=== PATIENT | male | born 1950 | race Caucasian/White ===

== ENCOUNTER 2018-03-11 08:27 | Outpatient (CLI) | payer OTHER ==
[2018-03-11 10:34] LABS: THYROID STIMULATING HORMONE 27.31 uIU/mL (0.34-5.60)
[2018-03-11 10:36] LABS: FREE T4 (FREE THYROXINE) 0.68 ng/dL (0.58-1.64)
== END 2018-03-11 08:28 | disposition home or self-care (01) ==
LOC: LAB 08:27
PROVIDERS: ATTEND Internal Medicine Endocrinology, Diabetes & Metabolism
DX: R94.6 Abnormal results of thyroid function studies (principal)
CPT/HCPCS: 36415; 84439; 84443

== ENCOUNTER 2018-05-12 08:50 | Outpatient (CLI) | payer MEDICARE ==
[2018-05-12 10:27] LABS: THYROID STIMULATING HORMONE 38.74 uIU/mL (0.34-5.60)
[2018-05-12 10:29] LABS: FREE T4 (FREE THYROXINE) 0.73 ng/dL (0.58-1.64)
== END 2018-05-12 08:51 | disposition home or self-care (01) ==
LOC: LAB 08:50
PROVIDERS: ATTEND Internal Medicine Endocrinology, Diabetes & Metabolism
DX: R94.6 Abnormal results of thyroid function studies (principal)
CPT/HCPCS: 36415; 84439; 84443

== ENCOUNTER 2018-07-20 10:56 | Outpatient (CLI) | payer MEDICARE ==
[2018-07-20 14:55] LABS: FREE T4 (FREE THYROXINE) 0.47 ng/dL (0.58-1.64)
[2018-07-20 15:30] LABS: THYROID STIMULATING HORMONE 79.51 uIU/mL (0.34-5.60)
== END 2018-07-20 10:57 | disposition home or self-care (01) ==
LOC: LAB 10:56
PROVIDERS: ATTEND Internal Medicine Endocrinology, Diabetes & Metabolism
DX: R94.6 Abnormal results of thyroid function studies (principal)
CPT/HCPCS: 36415; 84439; 84443

== ENCOUNTER 2018-10-12 09:32 | Outpatient (CLI) | payer MEDICARE ==
[2018-10-12 10:15] LABS: FREE T4 (FREE THYROXINE) 0.75 ng/dL (0.58-1.64)
[2018-10-12 12:10] LABS: THYROID STIMULATING HORMONE 83.98 uIU/mL (0.34-5.60)
== END 2018-10-12 09:33 | disposition home or self-care (01) ==
LOC: LAB 09:32
PROVIDERS: ATTEND Internal Medicine Endocrinology, Diabetes & Metabolism
DX: E06.9 Thyroiditis, unspecified (principal); R79.89 Other specified abnormal findings of blood chemistry
CPT/HCPCS: 36415; 84439; 84443

== ENCOUNTER 2018-12-15 08:45 | Outpatient (CLI) | payer MEDICARE ==
[2018-12-15 10:30] LABS: THYROID STIMULATING HORMONE 18.64 uIU/mL (0.34-5.60)
[2018-12-15 10:32] LABS: FREE T4 (FREE THYROXINE) 1.15 ng/dL (0.58-1.64)
== END 2018-12-15 08:46 | disposition home or self-care (01) ==
LOC: LAB 08:45
PROVIDERS: ATTEND Internal Medicine Endocrinology, Diabetes & Metabolism
DX: E06.9 Thyroiditis, unspecified (principal)
CPT/HCPCS: 36415; 84439; 84443

== ENCOUNTER 2019-02-18 08:34 | Outpatient (CLI) | payer MEDICARE ==
[2019-02-18 10:37] LABS: THYROID STIMULATING HORMONE 20.73 uIU/mL (0.34-5.60)
[2019-02-18 10:39] LABS: FREE T4 (FREE THYROXINE) 0.9 ng/dL (0.58-1.64)
== END 2019-02-18 08:35 | disposition home or self-care (01) ==
LOC: LAB 08:34
PROVIDERS: ATTEND Internal Medicine Endocrinology, Diabetes & Metabolism
DX: E05.90 Thyrotoxicosis, unspecified without thyrotoxic crisis or storm (principal)
CPT/HCPCS: 36415; 84439; 84443

== ENCOUNTER 2019-04-22 09:09 | Outpatient (CLI) | payer MEDICARE ==
[2019-04-22 10:02] LABS: THYROID STIMULATING HORMONE 4.27 uIU/mL (0.34-5.60)
[2019-04-22 10:06] LABS: FREE T4 (FREE THYROXINE) 1.2 ng/dL (0.58-1.64)
== END 2019-04-22 09:10 | disposition home or self-care (01) ==
LOC: LAB 09:09
PROVIDERS: ATTEND Internal Medicine Endocrinology, Diabetes & Metabolism
DX: E03.9 Hypothyroidism, unspecified (principal)
CPT/HCPCS: 36415; 84439; 84443

== ENCOUNTER 2019-06-22 08:21 | Outpatient (CLI) | payer MEDICARE | END 2019-06-22 08:22 | disposition home or self-care (01) | LOC: LAB 08:21 | PROVIDERS: ATTEND Family Medicine | DX: R97.20 Elevated prostate specific antigen [PSA] (principal) | CPT/HCPCS: 36415; 84153 ==

== ENCOUNTER 2019-07-28 08:19 | Outpatient (CLI) | payer MEDICARE ==
[2019-07-28 10:03] LABS: THYROID STIMULATING HORMONE < 0.08 uIU/mL (0.34-5.60)
[2019-07-28 10:05] LABS: FREE T4 (FREE THYROXINE) 1.56 ng/dL (0.58-1.64)
== END 2019-07-28 08:20 | disposition home or self-care (01) ==
LOC: LAB 08:19
PROVIDERS: ATTEND Internal Medicine Endocrinology, Diabetes & Metabolism
DX: E05.90 Thyrotoxicosis, unspecified without thyrotoxic crisis or storm (principal)
CPT/HCPCS: 36415; 84439; 84443

== ENCOUNTER 2019-08-20 08:19 | Outpatient (CLI) | payer MEDICARE ==
[2019-08-20 09:03] LABS: ALBUMIN 3.9 g/dL (3.2-5.5); ALBUMIN/GLOBULIN RATIO 1.3 (1.0-2.2); ALKALINE PHOSPHATASE 92 IU/L (42-121); ALT ALANINE AMINOTRANSFERASE 12 IU/L (10-60); AST ASPARTATE AMINOTRANSFERASE 17 IU/L (10-42); BUN - BLOOD UREA NITROGEN 17 mg/dL (6-20); CALCIUM 9.4 mg/dL (8.5-10.3); CARBON DIOXIDE - CO2 27 mmol/L (21-32); CHLORIDE 104 mmol/L (101-111); CHOL/HDL RATIO 3.4 (<5.0); CHOLESTEROL 143 mg/dL; CREATININE 0.9 mg/dL (0.6-1.2); GFR - MDRD 83 (>89); GLUCOSE 100 mg/dL (70-100); HDL CHOLESTEROL 42 mg/dL; LDL CHOLESTEROL,CALCULATED 91 mg/dL; LDL/HDL RATIO 2.2 (<3.6); SODIUM 139 mmol/L (135-145); TOTAL PROTEIN 6.9 g/dL (6.7-8.2); VLDL CHOLESTEROL 10 mg/dL
== END 2019-08-20 08:20 | disposition home or self-care (01) ==
LOC: LAB 08:19
PROVIDERS: ATTEND Internal Medicine Clinical Cardiac Electrophysiology
DX: I48.19 Other persistent atrial fibrillation (principal); I42.0 Dilated cardiomyopathy; E05.90 Thyrotoxicosis, unspecified without thyrotoxic crisis or storm
CPT/HCPCS: 36415; 80053; 80061; 83721

== ENCOUNTER 2019-10-30 11:07 | Outpatient (CLI) | payer MEDICARE ==
[2019-10-30 11:54] LABS: THYROID STIMULATING HORMONE < 0.08 uIU/mL (0.34-5.60)
[2019-10-30 11:58] LABS: FREE T4 (FREE THYROXINE) 1.16 ng/dL (0.58-1.64)
== END 2019-10-30 11:08 | disposition home or self-care (01) ==
LOC: LAB 11:07
PROVIDERS: ATTEND Internal Medicine Endocrinology, Diabetes & Metabolism
DX: E05.90 Thyrotoxicosis, unspecified without thyrotoxic crisis or storm (principal)
CPT/HCPCS: 36415; 84439; 84443

== ENCOUNTER 2020-01-08 08:38 | Outpatient (CLI) | payer MEDICARE ==
[2020-01-08 09:38] LABS: THYROID STIMULATING HORMONE < 0.08 uIU/mL (0.34-5.60)
[2020-01-08 09:40] LABS: FREE T4 (FREE THYROXINE) 1.33 ng/dL (0.58-1.64)
== END 2020-01-08 08:39 | disposition home or self-care (01) ==
LOC: LAB 08:38
PROVIDERS: ATTEND Internal Medicine Endocrinology, Diabetes & Metabolism
DX: E03.8 Other specified hypothyroidism (principal); E06.3 Autoimmune thyroiditis
CPT/HCPCS: 36415; 84439; 84443

== ENCOUNTER 2020-04-17 08:00 | Outpatient (CLI) | payer MEDICARE ==
[2020-04-17 18:29] LABS: THYROID STIMULATING HORMONE < 0.08 uIU/mL (0.34-5.60)
[2020-04-17 18:31] LABS: FREE T4 (FREE THYROXINE) 1.22 ng/dL (0.58-1.64)
== END 2020-04-17 23:59 | disposition home or self-care (01) ==
LOC: LAB 08:00
PROVIDERS: ATTEND Internal Medicine Endocrinology, Diabetes & Metabolism
DX: E03.8 Other specified hypothyroidism (principal); E06.3 Autoimmune thyroiditis
CPT/HCPCS: 36415; 84439; 84443

== ENCOUNTER 2020-08-30 09:59 | Outpatient (CLI) | payer MEDICARE ==
[2020-08-30 10:48] LABS: THYROID STIMULATING HORMONE 0.13 uIU/mL (0.34-5.60)
[2020-08-30 10:50] LABS: FREE T4 (FREE THYROXINE) 1.06 ng/dL (0.58-1.64)
== END 2020-08-30 10:00 | disposition home or self-care (01) ==
LOC: LAB 09:59
PROVIDERS: ATTEND Internal Medicine Endocrinology, Diabetes & Metabolism
DX: R79.89 Other specified abnormal findings of blood chemistry (principal); E06.3 Autoimmune thyroiditis; E03.8 Other specified hypothyroidism
CPT/HCPCS: 36415; 84439; 84443

== ENCOUNTER 2020-12-09 08:10 | Outpatient (CLI) | payer MEDICARE ==
[2020-12-09 08:52] LABS: THYROID STIMULATING HORMONE < 0.08 uIU/mL (0.34-5.60)
[2020-12-09 08:54] LABS: FREE T4 (FREE THYROXINE) 1.06 ng/dL (0.58-1.64)
== END 2020-12-09 08:11 | disposition home or self-care (01) ==
LOC: LAB 08:10
PROVIDERS: ATTEND Internal Medicine Endocrinology, Diabetes & Metabolism
DX: E03.8 Other specified hypothyroidism (principal); E06.3 Autoimmune thyroiditis
CPT/HCPCS: 36415; 84439; 84443

== ENCOUNTER 2021-01-07 14:17 | Outpatient (CLI) | payer MEDICARE ==
[2021-01-07 15:53] LABS: THYROID STIMULATING HORMONE 0.44 uIU/mL (0.34-5.60)
[2021-01-07 15:55] LABS: FREE T4 (FREE THYROXINE) 0.95 ng/dL (0.58-1.64)
== END 2021-01-07 14:18 | disposition home or self-care (01) ==
LOC: LAB 14:17
PROVIDERS: ATTEND Internal Medicine Endocrinology, Diabetes & Metabolism
DX: E05.90 Thyrotoxicosis, unspecified without thyrotoxic crisis or storm (principal)
CPT/HCPCS: 36415; 81599; 83520; 84439; 84443; 84445; 84480; 86376; 86800

== ENCOUNTER 2021-03-31 13:22 | Outpatient (CLI) | payer MEDICARE ==
[2021-03-31 14:23] LABS: THYROID STIMULATING HORMONE 0.76 uIU/mL (0.34-5.60)
[2021-03-31 14:25] LABS: FREE T4 (FREE THYROXINE) 0.9 ng/dL (0.58-1.64)
== END 2021-03-31 13:23 | disposition home or self-care (01) ==
LOC: LAB 13:22
PROVIDERS: ATTEND Student in an Organized Health Care Education/Training Program
DX: E05.90 Thyrotoxicosis, unspecified without thyrotoxic crisis or storm (principal)
CPT/HCPCS: 36415; 84439; 84443; 84480

== ENCOUNTER 2021-08-05 08:56 | Outpatient (CLI) | payer MEDICARE ==
[2021-08-05 09:49] LABS: THYROID STIMULATING HORMONE 6.62 uIU/mL (0.34-5.60)
[2021-08-05 09:51] LABS: FREE T4 (FREE THYROXINE) 0.64 ng/dL (0.58-1.64)
== END 2021-08-05 08:57 | disposition home or self-care (01) ==
LOC: LAB 08:56
PROVIDERS: ATTEND Student in an Organized Health Care Education/Training Program
DX: E05.90 Thyrotoxicosis, unspecified without thyrotoxic crisis or storm (principal)
CPT/HCPCS: 36415; 84439; 84443; 84480

== ENCOUNTER 2021-11-06 07:52 | Outpatient (CLI) | payer MEDICARE ==
[2021-11-06 08:15] LABS: CREATININE 1.1 mg/dL (0.6-1.2)
[2021-11-06] MEDS ORDERED: GADOBUTROL 7.5 MMOL/7.5 ML VIAL ONE (08:47)
--- NOTE | 2021-11-06 10:59 | MRI Report ---
PROCEDURE: Orbits W/WO INDICATIONS: FACIAL MASS CONTRAST: IV CONTRAST: Gadavist ml: 6.8 TECHNIQUE: Noncontrast sagittal T1 spin echo, axial FLAIR, axial gradient echo, axial diffusion and ADC acquired through the brain. Coronal STIR, thin-slice axial T1 spin echo through the orbits. After the admin istration of contrast, thin slice axial and coronal T1 spin echo with fat saturation through the orbi ts, axial T1 spin echo with fat saturation through the brain. COMPARISON: Correlation is made with ultrasound, 10/10/2021. FINDINGS: Image quality: Excellent. Orbits: Globes are symmetrical. The optic nerves are normal in size, without abnormal signal or enh ancement. No retrobulbar masses or fat abnormalities. The extra-ocular muscles are normal and symme tric in appearance. Lacrimal glands are normal. Optic chiasm is normal. Periorbital soft tissues a ppear normal. CSF spaces: Ventricles are normal in size and shape. Basal cisterns are patent. No extra-axial flu id collections. Brain: No intracranial bleeds or mass effects. No abnormal intracranial enhancement. Contreras-white ma tter interface is intact. Diffusion weighted images demonstrate no acute ischemic insults. Pituitar y gland appears normal, without sellar or suprasellar masses. Brainstem appears normal. Normal intr avascular flow voids are present. Focal volume loss and encephalomalacia can be seen involving the left frontal lobe laterally. No abno rmal enhancement can be seen at this site. Along the inferior aspect of the right frontal lobe anteromedially, there is a nonenhancing cystic st ructure seen measuring up to 1.4 cm. Skull and face: The area of clinical concern of the right face is marked. At this site, there is an ovoid lesion that follows fat signal on all imaging sequences. This measures 2.3 x 2 cm in greatest a xial dimension. On postcontrast imaging, no significant discernible enhancement can be seen. Calvarial marrow is normal in signal. Sinuses: Mild generalized mucosal thickening can be seen within the paranasal sinuses. No significan t abnormal fluid can be seen within the mastoid air cells. 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 Focal volume loss and encephalomalacia can be seen involving the left frontal lobe, without abnormal enhancement. Prior infarct is suspected. A 1.4 cm extra-axial cyst is seen adjacent to the right frontal lobe inferomedially. Please consider an arachnoid cyst. Generalized mucosal thickening can be seen within the paranasal sinuses. Reviewed by: Olvin Reece MD on 11/06/2021 9:57 AM [facility] Approved by: Olvin Reece MD on 11/06/2021 9:57 AM [facility] Station ID: [id number]
[2021-11-06] MEDS ORDERED: GADOBUTROL 7.5 MMOL/7.5 ML VIAL IVP ONE (16:44)
[2021-11-08] MEDS ORDERED: GADOBUTROL 7.5 MMOL/7.5 ML VIAL IVP ONE (12:54)
== END 2021-11-06 07:53 | disposition home or self-care (01) ==
LOC: LAB 07:52
PROVIDERS: ATTEND Physician Assistant Medical
DX: Z01.818 Encounter for other preprocedural examination (principal); D17.0 Benign lipomatous neoplasm of skin and subcutaneous tissue of head, face and neck; G93.89 Other specified disorders of brain; G31.89 Other specified degenerative diseases of nervous system; G93.0 Cerebral cysts; J34.89 Other specified disorders of nose and nasal sinuses
CPT/HCPCS: 36415; 70543; 82565; A9585

== ENCOUNTER 2022-01-14 08:00 | Outpatient (CLI) | payer MEDICARE ==
[2022-01-14 19:54] LABS: BASOPHILS # (AUTO) 0.1 10^3/uL (0.0-0.1); BASOPHILS % (AUTO) 0.7 %; EOSINOPHILS # (AUTO) 0.3 10^3/uL (0.0-0.7); EOSINOPHILS % (AUTO) 3.9 %; HGB - HEMOGLOBIN 17.1 g/dL (14.0-18.0); LYMPHOCYTES # (AUTO) 1.7 10^3/uL (1.5-3.5); LYMPHOCYTES % (AUTO) 19.9 %; MEAN CORPUSCULAR HEMOGLOBIN 32.6 pg (27.0-31.0); MEAN CORPUSCULAR HGB CONC 32.3 g/dL (32.0-36.0); MONOCYTES # (AUTO) 0.7 10^3/uL (0.0-1.0); MONOCYTES % (AUTO) 8.2 %; NEUTROPHILS # (AUTO) 5.8 10^3/uL (1.5-6.6); NEUTROPHILS % (AUTO) 66.8 %; PLT - PLATELET COUNT 169 10^3/uL (130-450); RED BLOOD COUNT 5.25 10^6/uL (4.70-6.10); WHITE BLOOD COUNT 8.7 x10^3/uL (4.8-10.8)
[2022-01-14 20:08] LABS: ALBUMIN 3.9 g/dL (3.2-5.5); ALBUMIN/GLOBULIN RATIO 1.3 (1.0-2.2); BILIRUBIN,TOTAL 0.9 mg/dL (0.2-1.0); CALCIUM 9.2 mg/dL (8.5-10.3); CREATININE 1.1 mg/dL (0.6-1.2); POTASSIUM 4.8 mmol/L (3.5-5.0)
[2022-01-14 20:23] LABS: THYROID STIMULATING HORMONE 20.84 uIU/mL (0.34-5.60)
[2022-01-14 21:01] LABS: FREE T4 (FREE THYROXINE) 1.1 ng/dL (0.58-1.64)
== END 2022-01-14 23:59 | disposition home or self-care (01) ==
LOC: LAB.S 08:00
PROVIDERS: ATTEND Physician Assistant
DX: E06.3 Autoimmune thyroiditis (principal); R53.83 Other fatigue
CPT/HCPCS: 36415; 80053; 84439; 84443; 85025

== ENCOUNTER 2022-03-05 11:14 | Outpatient (CLI) | payer MEDICARE ==
[2022-03-05 16:24] LABS: THYROID STIMULATING HORMONE 41.27 uIU/mL (0.34-5.60)
[2022-03-05 16:26] LABS: FREE T4 (FREE THYROXINE) 0.69 ng/dL (0.58-1.64)
== END 2022-03-05 11:15 | disposition home or self-care (01) ==
LOC: LAB.S 11:14
PROVIDERS: ATTEND Internal Medicine Endocrinology, Diabetes & Metabolism
DX: E05.90 Thyrotoxicosis, unspecified without thyrotoxic crisis or storm (principal); R79.89 Other specified abnormal findings of blood chemistry; E03.8 Other specified hypothyroidism; E06.3 Autoimmune thyroiditis
CPT/HCPCS: 36415; 84439; 84443; 84480

== ENCOUNTER 2022-04-24 14:11 | Outpatient (CLI) | payer MEDICARE ==
[2022-04-24 19:47] LABS: THYROID STIMULATING HORMONE 31.8 uIU/mL (0.34-5.60)
[2022-04-24 19:49] LABS: FREE T4 (FREE THYROXINE) 0.67 ng/dL (0.58-1.64)
== END 2022-04-24 14:12 | disposition home or self-care (01) ==
LOC: LAB.S 14:11
PROVIDERS: ATTEND Internal Medicine Endocrinology, Diabetes & Metabolism
DX: R94.6 Abnormal results of thyroid function studies (principal)
CPT/HCPCS: 36415; 84439; 84443

== ENCOUNTER 2022-06-12 11:28 | Emergency (ER) | payer MEDICARE ==
--- NOTE | 2022-06-12 11:56 | XRAY Report ---
PROCEDURE: Chest 1 View X-Ray INDICATIONS: Cough/SOA TECHNIQUE: One view of the chest was acquired. COMPARISON: None. FINDINGS: Surgical changes and devices: None. Lungs and pleura: No pleural effusions or pneumothorax. Lungs are clear. Mediastinum: Mediastinal contours appear normal. Heart size is normal. Bones and chest wall: No suspicious bony lesions. Overlying soft tissues appear unremarkable. IMPRESSION: No acute pulmonary process. Reviewed by: Marylou Pierson MD on 06/12/2022 11:54 AM [facility] Approved by: Marylou Pierson MD on 06/12/2022 11:54 AM [facility] Station ID: [id number]
[2022-06-12 12:48] LABS: B. PARAPERTUSSIS- RESP PCR PAN NOT DETECTED; B. PERTUSSIS- RESP PCR PANEL NOT DETECTED; C. PNEUMONIAE- RESP PCR PANEL NOT DETECTED; CORONAVIRUS 229E-RESP PCR NOT DETECTED; CORONAVIRUS HKU1-RESP PCR NOT DETECTED; CORONAVIRUS NL63-RESP PCR NOT DETECTED; CORONAVIRUS OC43-RESP PCR DETECTED; HUMAN METAPNEUMOVIRUS NOT DETECTED; INFLUENZA A H3- RESP PCR PANEL DETECTED; INFLUENZA B - RESP PCR PANEL NOT DETECTED; M. PNEUMONIAE- RESP PCR PANEL NOT DETECTED; PARAINFLUENZA VIRUS 1 NOT DETECTED; PARAINFLUENZA VIRUS 2 NOT DETECTED; PARAINFLUENZA VIRUS 3 NOT DETECTED; PARAINFLUENZA VIRUS 4 NOT DETECTED; RHINOVIRUS/ENTEROVIRUS NOT DETECTED; RSV- RESP PCR PANEL NOT DETECTED; SARS-CoV-2 -RESP PCR PANEL NOT DETECTED
--- NOTE | 2022-06-12 13:20 | ED Physician Documentation ---
PD HPI URI - Stated complaint Stated Complaint: BODY ACHES - Chief complaint Chief Complaint: General - History obtained from History obtained from: Patient - History of Present Illness Timing - onset: How many weeks ago (07/08) Timing duration: Weeks (07/08) Timing details: Abrupt onset, Still present (he has had cessation of fevers and chills, but continues with general weakness, aches, nausea.) Associated symptoms: Fever (initially with the illness, but no fevers the past few days.), Chills, Nasal congestion, Productive cough, Dyspnea. No: Sore throat, Hemoptysis, Chest pain, Bilateral edema Contributing factors: No: Sick contact, Immunocompromised, COPD / asthma Improves by: Rest Worsened by: Activity Similar symptoms before: Has not had sx before Recently seen: Not recently seen Review of Systems Constitutional: reports: Fever, Myalgias Nose: reports: Congestion. denies: Rhinorrhea / runny nose Throat: denies: Dental pain / toothache, Sore throat Cardiac: reports: Palpitations. denies: Chest pain / pressure, Pedal edema Respiratory: reports: Dyspnea, Cough GI: reports: Abdominal Pain. denies: Nausea, Vomiting Musculoskeletal: reports: Extremity pain Neurologic: reports: Generalized weakness, Near syncope. denies: Altered mental status, Headache PD PAST MEDICAL HISTORY - Past Medical History Cardiovascular: Hypertension Respiratory: None Neuro: None Endocrine/Autoimmune: None - Past Surgical History Past Surgical History: No - Present Medications Home Medications: Ambulatory Orders Medication Instructions Recorded Confirmed Amox/Clav 875/125 [Augmentin] 1 each PO Q12H #10 tablet 06/12/22 Apixaban [Eliquis] 5 mg ORAL BID 06/12/22 06/12/22 Benzonatate [Tessalon] 100 mg PO TID PRN #20 cap 06/12/22 Famotidine [Pepcid] 20 mg PO DAILY #15 tablet 06/12/22 Levothyroxine [Synthroid] 12.5 mcg PO QDAC 06/12/22 06/12/22 Metoprolol Succinate 100 mg PO BID 06/12/22 06/12/22 Ondansetron Odt [Zofran] 4 mg TL Q6H PRN #15 tablet 06/12/22 - Allergies Allergies/Adverse Reactions: Allergies Allergy/AdvReac Type Severity Reaction Status Date / Time Sulfa (Sulfonamide Allergy Unknown Verified 06/12/22 11:36 Antibiotics) PD ED PE NORMAL - Vitals Vital signs reviewed: Yes - General General: Alert and oriented X 3, No acute distress, Well developed/nourished - HEENT HEENT: Ears normal, Pharynx benign. No: Moist mucous membranes - Neck Neck: Supple, no meningeal sign, No adenopathy - Cardiac Cardiac: RRR, No murmur - Respiratory Respiratory: No respiratory distress, Clear bilaterally - Abdomen Abdomen: Normal bowel sounds, Soft, Non distended, No organomegaly, Other (minimal tenderness right to central mid abdomen without guarding nor percussion tenderness. ) - Male Male : Deferred - Rectal Rectal: Deferred - Back Back: No CVA TTP - Derm Derm: Warm and dry, No rash. No: Normal color (pale coloring. ) - Extremities Extremities: Normal ROM s pain, No edema, No calf tenderness / cord - Neuro Neuro: Alert and oriented X 3, No motor deficit, Normal speech Results - Vitals Vitals: Vital Signs - 24 hr 06/12/22 06/12/22 06/12/22 11:34 14:00 16:00 Temperature 36 C L Heart Rate 76 76 90 Respiratory 16 16 17 Rate Blood Pressure 120/68 120/82 H 125/87 H O2 Saturation 99 99 96 06/12/22 18:36 Temperature 36.1 C L Heart Rate 81 Respiratory 15 Rate Blood Pressure 108/80 O2 Saturation 100 Oxygen O2 Source Room air - Labs Labs: Laboratory Tests 06/12/22 06/12/22 06/12/22 11:39 14:00 14:00 WBC 10.6 RBC 5.02 Hgb 15.4 Hct 46.4 MCV 92.4 MCH 30.7 MCHC 33.2 RDW 14.5 Plt Count 170 MPV 11.4 Neut # (Auto) 8.0 H Lymph # (Auto) 1.2 L [place] # (Auto) 1.0 Eos # (Auto) 0.2 Baso # (Auto) 0.1 Absolute Nucleated RBC 0.00 Nucleated RBC % 0.0 Sodium 126 L Potassium 6.3 H* Chloride 91 L Carbon Dioxide 23 Anion Gap 12.0 BUN 66 H Creatinine 1.6 H Estimated GFR (MDRD) 42 L Glucose 102 H Calcium 8.9 Magnesium 2.2 Total Bilirubin 0.7 AST 71 H ALT 22 Alkaline Phosphatase 66 Total Creatine Kinase 2701 H* Total Protein 6.7 Albumin 3.5 Globulin 3.2 Albumin/Globulin Ratio 1.1 Lipase 34 Nasal Adenovirus (PCR) NOT DETECTED Nasal B. parapertussis DNA (PCR) NOT DETECTED Nasal Coronavir 229E PCR NOT DETECTED Nasal Coronavir HKU1 PCR NOT DETECTED Nasal Coronavir NL63 PCR NOT DETECTED Nasal Coronavir OC43 PCR DETECTED A Nasal Enterovir/Rhinovir PCR NOT DETECTED Nasal Influenza A H3 PCR DETECTED A Nasal Influenza B PCR NOT DETECTED Nasal Parainfluen 1 PCR NOT DETECTED Nasal Parainfluen 2 PCR NOT DETECTED Nasal Parainfluen 3 PCR NOT DETECTED Nasal Parainfluen 4 PCR NOT DETECTED Nasal RSV (PCR) NOT DETECTED Nasal B.pertussis DNA PCR NOT DETECTED Nasal C.pneumoniae (PCR) NOT DETECTED Zeeshan Human Metapneumo PCR NOT DETECTED Nasal M.pneumoniae (PCR) NOT DETECTED Nasal SARS-CoV-2 (PCR) NOT DETECTED 06/12/22 17:00 WBC RBC Hgb Hct MCV MCH MCHC RDW Plt Count MPV Neut # (Auto) Lymph # (Auto) [place] # (Auto) Eos # (Auto) Baso # (Auto) Absolute Nucleated RBC Nucleated RBC % Sodium 127 L Potassium 5.6 H Chloride 97 L Carbon Dioxide 22 Anion Gap 8.0 BUN 60 H Creatinine 1.6 H Estimated GFR (MDRD) 42 L Glucose 105 H Calcium 8.0 L Magnesium 1.7 Total Bilirubin AST ALT Alkaline Phosphatase Total Creatine Kinase Total Protein Albumin Globulin Albumin/Globulin Ratio Lipase Nasal Adenovirus (PCR) Nasal B. parapertussis DNA (PCR) Nasal Coronavir 229E PCR Nasal Coronavir HKU1 PCR Nasal Coronavir NL63 PCR Nasal Coronavir OC43 PCR Nasal Enterovir/Rhinovir PCR Nasal Influenza A H3 PCR Nasal Influenza B PCR Nasal Parainfluen 1 PCR Nasal Parainfluen 2 PCR Nasal Parainfluen 3 PCR Nasal Parainfluen 4 PCR Nasal RSV (PCR) Nasal B.pertussis DNA PCR Nasal C.pneumoniae (PCR) Zeeshan Human Metapneumo PCR Nasal M.pneumoniae (PCR) Nasal SARS-CoV-2 (PCR) PD MEDICAL DECISION MAKING - ED course Complexity details: reviewed results (creatinine elevated but not above twice baseline. CK elevated but is under 3K. Electrolytes are abnormal. Our med surg unit does not have bed capacity. Patient treated prolongedly in ER even though would likely fit OBS criteria. ), re-evaluated patient (improved with IV fluids and meds. Labs repeated are showing some improvement toward normal in Potassium, and and sodium. Cr not changed yet. He is able to be up and walk around part of the ER. feels able to function at home. daughter agrees. ), considered differential (sounds likely flu or covid illness with less intake leading to dehydration and augmenting general symptoms. can give iV fluids, antiemetics, H2B. check labs. ), d/w patient Departure - Departure Disposition: Home, Self Care Clinical Impression: Dehydration, Acute hyponatremia, Hyperkalemia, Acute viral syndrome, Lower respiratory infection (e.g., bronchitis, pneumonia, pneumonitis, pulmonitis) Condition: Stable Record reviewed to determine appropriate education?: Yes Instructions: ED Dehydration Follow-Up: Ysabel Bates ARNP [Primary Care Provider] - Prescriptions: Amox/Clav 875/125 [Augmentin] 1 each PO Q12H #10 tablet Famotidine [Pepcid] 20 mg PO DAILY #15 tablet Benzonatate [Tessalon] 100 mg PO TID PRN #20 cap PRN Reason: Cough Ondansetron Odt [Zofran] 4 mg TL Q6H PRN #15 tablet PRN Reason: Nausea / Vomiting Comments: You did appear notably dehydrated clinically and via lab tests. We have given you several liters of fluid here along with some antiemetics and you seem to be perking up a bit. We will provide some nausea medicine to help with your stomach. No doubt your stomach will be irritated from being ill this past week so some famotidine acid reducing medicine would make sense as well. Add benzonatate if needed for cough. Given your increased cough and feeling of illness, consideration would be developing a secondary lower track respiratory infection. I would add Augmentin antibiotic twice daily for 5 days as well. Your blood test here over the several hours of hydration have shown an improvement in the electrolyte abnormalities. I would anticipate these continuing to improve with continued hydration and diet. I would suggest following up with your primary care however for likely repeat blood test in a couple of days to ensure further correction of the abnormalities. I sent your prescriptions to [facility] in [place]. Discharge Date/Time: 06/12/22 19:00
[2022-06-12] MEDS ORDERED: SODIUM CHLORIDE 0.9% 1,000 ML IV STA ×3 (13:54→15:22)
[2022-06-12] MEDS ORDERED: ONDANSETRON 4 MG/2 ML VIAL IVP STA (13:54)
[2022-06-12] MEDS ORDERED: FAMOTIDINE 20 MG/2 ML VIAL IVP STA (13:54)
[2022-06-12] MEDS ORDERED: KETOROLAC 15 MG/ML VIAL IVP STA (13:54)
[2022-06-12 14:04] LABS: BASOPHILS # (AUTO) 0.1 10^3/uL (0.0-0.1); BASOPHILS % (AUTO) 0.5 %; EOSINOPHILS # (AUTO) 0.2 10^3/uL (0.0-0.7); EOSINOPHILS % (AUTO) 1.9 %; HCT - HEMATOCRIT 46.4 % (42.0-52.0); HGB - HEMOGLOBIN 15.4 g/dL (14.0-18.0); LYMPHOCYTES # (AUTO) 1.2 10^3/uL (1.5-3.5); LYMPHOCYTES % (AUTO) 11.5 %; MEAN CORPUSCULAR HEMOGLOBIN 30.7 pg (27.0-31.0); MEAN CORPUSCULAR HGB CONC 33.2 g/dL (32.0-36.0); MEAN CORPUSCULAR VOLUME 92.4 fL (80.0-94.0); MEAN PLATELET VOLUME 11.4 fL (7.4-11.4); MONOCYTES % (AUTO) 9.5 %; NEUTROPHILS % (AUTO) 75.7 %; PLT - PLATELET COUNT 170 10^3/uL (130-450); RED BLOOD COUNT 5.02 10^6/uL (4.70-6.10); RED CELL DISTRIBUTION WIDTH 14.5 % (12.0-15.0); WHITE BLOOD COUNT 10.6 x10^3/uL (4.8-10.8)
[2022-06-12 14:28] LABS: ALBUMIN 3.5 g/dL (3.2-5.5); ALBUMIN/GLOBULIN RATIO 1.1 (1.0-2.2); BILIRUBIN,TOTAL 0.7 mg/dL (0.2-1.0); CALCIUM 8.9 mg/dL (8.5-10.3); CREATININE 1.6 mg/dL (0.6-1.2); MAGNESIUM 2.2 mg/dL (1.7-2.8); TOTAL PROTEIN 6.7 g/dL (6.7-8.2)
[2022-06-12 14:29] LABS: POTASSIUM 6.3 mmol/L (3.5-5.0)
[2022-06-12 17:16] LABS: CREATININE 1.6 mg/dL (0.6-1.2); MAGNESIUM 1.7 mg/dL (1.7-2.8); POTASSIUM 5.6 mmol/L (3.5-5.0)
[2022-06-12] MEDS ORDERED: AMOX/CLAV 875 MG/125 MG TABLET PO STA (18:15)
[2022-06-12] MEDS ORDERED: ONDANSETRON ODT 4 MG Prepack 2 TL PRN (18:15)
[2022-06-12 18:38] VITALS: BP 108/80
== END 2022-06-12 19:00 | disposition home or self-care (01) ==
LOC: ED 11:28
DX: E86.0 Dehydration (principal); E87.1 Hypo-osmolality and hyponatremia; E87.5 Hyperkalemia; B34.9 Viral infection, unspecified; J22 Unspecified acute lower respiratory infection; J40 Bronchitis, not specified as acute or chronic; J18.9 Pneumonia, unspecified organism
CPT/HCPCS: 36415; 71045; 80048; 80053; 82550; 83690; 83735; 85025; 87633; 93005; 96374; 96375; 99281; 99284; A9270

== ENCOUNTER 2022-07-13 11:14 | Outpatient (CLI) | payer MEDICARE ==
[2022-07-13 12:03] LABS: THYROID STIMULATING HORMONE 42.33 uIU/mL (0.34-5.60)
[2022-07-13 12:05] LABS: FREE T4 (FREE THYROXINE) 0.72 ng/dL (0.58-1.64)
== END 2022-07-13 11:15 | disposition home or self-care (01) ==
LOC: LAB 11:14
PROVIDERS: ATTEND Internal Medicine Endocrinology, Diabetes & Metabolism
DX: E05.90 Thyrotoxicosis, unspecified without thyrotoxic crisis or storm (principal); E06.3 Autoimmune thyroiditis
CPT/HCPCS: 36415; 84439; 84443; 84480

== ENCOUNTER 2022-10-11 12:41 | Outpatient (CLI) | payer MEDICARE ==
[2022-10-11 14:24] LABS: HCT - HEMATOCRIT 43.9 % (42.0-52.0); HGB - HEMOGLOBIN 14.5 g/dL (14.0-18.0); MEAN CORPUSCULAR HEMOGLOBIN 30.7 pg (27.0-31.0); MEAN PLATELET VOLUME 10.4 fL (7.4-11.4); RED BLOOD COUNT 4.72 10^6/uL (4.70-6.10); RED CELL DISTRIBUTION WIDTH 13.4 % (12.0-15.0); WHITE BLOOD COUNT 8.4 x10^3/uL (4.8-10.8)
[2022-10-11 14:53] LABS: CALCIUM 9.2 mg/dL (8.5-10.3); CREATININE 0.9 mg/dL (0.6-1.2)
== END 2022-10-11 12:42 | disposition home or self-care (01) ==
LOC: LAB.S 12:41
PROVIDERS: ATTEND Emergency Medicine
DX: I50.9 Heart failure, unspecified (principal)
CPT/HCPCS: 36415; 80048; 83880; 85027

== ENCOUNTER 2022-10-11 19:26 | Emergency (ER) | payer MEDICARE ==
--- OUTSIDE RECORDS SUMMARY | 2022-10-11 19:38 | EXTERNAL MEDICAL SUMMARY RPT | Continuity of Care Document ---
:1950 Author Organization [facility] Address [address] [place] [address] Phone Care Team Providers Name Role Phone Unavailable Unavailable Unavailable Ysabel Singer Unavailable Unavailable Allergies No information. Encounters No information. Functional Status No information. Immunizations No information. Medications date description facility 2022-07-13 00:00 apixaban [facility] 2022-07-15 00:00 apixaban [facility] 2022-08-04 00:00 apixaban [facility] 2022-08-05 00:00 apixaban [facility] 2022-08-29 00:00 apixaban [facility] 2022-08-30 00:00 apixaban [facility] 2022-07-13 00:00 famotidine [facility] 2022-07-15 00:00 famotidine [facility] 2022-08-04 00:00 famotidine [facility] 2022-08-05 00:00 famotidine [facility] 2022-08-29 00:00 famotidine [facility] 2022-08-30 00:00 famotidine [facility] 2022-07-13 00:00 metoprolol succinate [facility] 2022-07-15 00:00 metoprolol succinate [facility] 2022-08-04 00:00 metoprolol succinate [facility] 2022-08-05 00:00 metoprolol succinate [facility] 2022-08-29 00:00 metoprolol succinate [facility] 2022-08-30 00:00 metoprolol succinate [facility] 2022-07-13 00:00 levothyroxine [facility] 2022-07-15 00:00 levothyroxine [facility] 2022-08-04 00:00 levothyroxine [facility] 2022-08-05 00:00 levothyroxine [facility] 2022-08-29 00:00 levothyroxine [facility] 2022-08-30 00:00 levothyroxine [facility] 2022-08-29 00:00 amoxicillin-pot clavulanate [facility] 2022-08-29 00:00 amoxicillin-pot clavulanate [facility] 2022-07-13 00:00 levothyroxine [facility] 2022-07-15 00:00 levothyroxine [facility] 2022-08-04 00:00 levothyroxine [facility] 2022-08-05 00:00 levothyroxine [facility] 2022-08-29 00:00 levothyroxine [facility] 2022-08-30 00:00 levothyroxine [facility] 2022-07-13 00:00 apixaban [facility] 2022-07-15 00:00 apixaban [facility] 2022-08-04 00:00 apixaban [facility] 2022-08-05 00:00 apixaban [facility] 2022-08-29 00:00 apixaban [facility] 2022-08-30 00:00 apixaban [facility] 2022-07-13 00:00 apixaban [facility] 2022-07-15 00:00 apixaban [facility] 2022-08-04 00:00 apixaban [facility] 2022-08-05 00:00 apixaban [facility] 2022-08-29 00:00 apixaban [facility] 2022-08-30 00:00 apixaban [facility] 2022-07-13 00:00 benzonatate [facility] 2022-07-15 00:00 benzonatate [facility] 2022-08-04 00:00 benzonatate [facility] 2022-08-05 00:00 benzonatate [facility] 2022-08-29 00:00 benzonatate [facility] 2022-08-30 00:00 benzonatate [facility] 2022-07-13 00:00 ondansetron hcl [facility] 2022-07-15 00:00 ondansetron hcl [facility] 2022-08-04 00:00 ondansetron hcl [facility] 2022-08-05 00:00 ondansetron hcl [facility] 2022-08-29 00:00 ondansetron hcl [facility] 2022-08-30 00:00 ondansetron hcl [facility] 2022-07-13 00:00 famotidine [facility] 2022-07-15 00:00 famotidine [facility] 2022-08-04 00:00 famotidine [facility] 2022-08-05 00:00 famotidine [facility] 2022-08-29 00:00 famotidine [facility] 2022-08-30 00:00 famotidine [facility] 2022-07-13 00:00 benzonatate [facility] 2022-07-15 00:00 benzonatate [facility] 2022-08-04 00:00 benzonatate [facility] 2022-08-05 00:00 benzonatate [facility] 2022-08-29 00:00 benzonatate [facility] 2022-08-30 00:00 benzonatate [facility] 2022-07-13 00:00 levothyroxine [facility] 2022-07-15 00:00 levothyroxine [facility] 2022-08-04 00:00 levothyroxine [facility] 2022-08-05 00:00 levothyroxine [facility] 2022-08-29 00:00 levothyroxine [facility] 2022-08-30 00:00 levothyroxine [facility] 2022-07-13 00:00 ondansetron hcl [facility] 2022-07-15 00:00 ondansetron hcl [facility] 2022-08-04 00:00 ondansetron hcl [facility] 2022-08-05 00:00 ondansetron hcl [facility] 2022-08-29 00:00 ondansetron hcl [facility] 2022-08-30 00:00 ondansetron hcl [facility] 2022-07-13 00:00 famotidine [facility] 2022-07-15 00:00 famotidine [facility] 2022-08-04 00:00 famotidine [facility] 2022-08-05 00:00 famotidine [facility] 2022-08-29 00:00 famotidine [facility] 2022-08-30 00:00 famotidine [facility] 2022-07-13 00:00 metoprolol succinate [facility] 2022-07-15 00:00 metoprolol succinate [facility] 2022-08-04 00:00 metoprolol succinate [facility] 2022-08-05 00:00 metoprolol succinate [facility] 2022-08-29 00:00 metoprolol succinate [facility] 2022-08-30 00:00 metoprolol succinate [facility] 2022-07-13 00:00 benzonatate [facility] 2022-07-15 00:00 benzonatate [facility] 2022-08-04 00:00 benzonatate [facility] 2022-08-05 00:00 benzonatate [facility] 2022-08-29 00:00 benzonatate [facility] 2022-08-30 00:00 benzonatate [facility] 2022-08-29 00:00 albuterol sulfate [facility] 2022-08-29 00:00 albuterol sulfate [facility] 2022-07-13 00:00 famotidine [facility] 2022-07-15 00:00 famotidine [facility] 2022-08-04 00:00 famotidine [facility] 2022-08-05 00:00 famotidine [facility] 2022-08-29 00:00 famotidine [facility] 2022-08-30 00:00 famotidine [facility] 2022-07-13 00:00 ondansetron hcl [facility] 2022-07-15 00:00 ondansetron hcl [facility] 2022-08-04 00:00 ondansetron hcl [facility] 2022-08-05 00:00 ondansetron hcl [facility] 2022-08-29 00:00 ondansetron hcl [facility] 2022-08-30 00:00 ondansetron hcl [facility] 2022-07-13 00:00 ondansetron hcl [facility] 2022-07-15 00:00 ondansetron hcl [facility] 2022-08-04 00:00 ondansetron hcl [facility] 2022-08-05 00:00 ondansetron hcl [facility] 2022-08-29 00:00 ondansetron hcl [facility] 2022-08-30 00:00 ondansetron hcl [facility] 2022-08-29 00:00 amoxicillin-pot clavulanate [facility] 2022-08-29 00:00 albuterol sulfate [facility] 2022-07-13 00:00 benzonatate [facility] 2022-07-15 00:00 benzonatate [facility] 2022-08-04 00:00 benzonatate [facility] 2022-08-05 00:00 benzonatate [facility] 2022-08-29 00:00 benzonatate [facility] 2022-08-30 00:00 benzonatate [facility] 2022-07-13 00:00 metoprolol succinate [facility] 2022-07-15 00:00 metoprolol succinate [facility] 2022-08-04 00:00 metoprolol succinate [facility] 2022-08-05 00:00 metoprolol succinate [facility] 2022-08-29 00:00 metoprolol succinate [facility] 2022-08-30 00:00 metoprolol succinate [facility] 2022-08-29 00:00 albuterol sulfate [facility] 2022-08-29 00:00 amoxicillin-pot clavulanate [facility] 2022-07-13 00:00 apixaban [facility] 2022-07-15 00:00 apixaban [facility] 2022-08-04 00:00 apixaban [facility] 2022-08-05 00:00 apixaban [facility] 2022-08-29 00:00 apixaban [facility] 2022-08-30 00:00 apixaban [facility] 2022-07-13 00:00 metoprolol succinate [facility] 2022-07-15 00:00 metoprolol succinate [facility] 2022-08-04 00:00 metoprolol succinate [facility] 2022-08-05 00:00 metoprolol succinate [facility] 2022-08-29 00:00 metoprolol succinate [facility] 2022-08-30 00:00 metoprolol succinate [facility] 2022-07-13 00:00 levothyroxine [facility] 2022-07-15 00:00 levothyroxine [facility] 2022-08-04 00:00 levothyroxine [facility] 2022-08-05 00:00 levothyroxine [facility] 2022-08-29 00:00 levothyroxine [facility] 2022-08-30 00:00 levothyroxine [facility] Problems date description facility 2022-08-29 00:00 Chronic sinusitis [facility] 2022-08-29 00:00 Unspecified sinusitis (chronic) [facility] 2022-08-29 00:00 Chronic sinusitis, unspecified [facility] 2022-08-29 00:00 Wheezing [facility] Procedures date description facility 2022-08-29 00:00 Visit Code Hold [facility] Results/Labs test date author facility value unit interpret ation Result panel 1 (unknown) (no date) (unknown) Walk[facility] (no value) [facility]units [facility] Result panel 2 (unknown) (no date) (unknown) [facility] (no value) [facility] Result panel 3 (unknown) (no date) (unknown) [facility] (no value) [facility]units [facility] Result panel 4 (unknown) (no date) (unknown) [facility] (no value) [facility]units [facility] Result panel 5 (unknown) (no date) (unknown) [facility] (no value) [facility]units [facility] Result panel 6 (unknown) (no date) (unknown) [facility] (no value) [facility] Result panel 7 (unknown) (no date) (unknown) [facility] (no value) [facility]units [facility] Result panel 8 (unknown) (no date) (unknown) [facility] (no value) [facility]units [facility] Result panel 9 (unknown) (no date) (unknown) [facility] (no value) [facility] Result panel 10 (unknown) (no date) (unknown) Walk-[facility] (no value) [facility]units [facility] Result panel 11 (unknown) (no date) (unknown) Walk-[facility] (no value) [facility] Result panel 12 (unknown) (no date) (unknown) [facility] (no value) [facility] Result panel 13 (unknown) (no date) (unknown) [facility] (no value) [facility] Result panel 14 (unknown) (no date) (unknown) [facility] (no value) ([facility] Result panel 15 (unknown) (no date) (unknown) [facility] (no value) [facility] Result panel 16 (unknown) (no date) (unknown) [facility] (no value) [facility] Result panel 17 (unknown) (no date) (unknown) [facility] (no value) [facility] Result panel 18 (unknown) (no date) (unknown) [facility] (no value) [facility] Result panel 19 (unknown) (no date) (unknown) [facility] (no value) [facility] Result panel 20 (unknown) (no date) (unknown) [facility] (no value) [facility] Result panel 21 (unknown) (no date) (unknown) [facility] (no value) [facility] Result panel 22 (unknown) (no date) (unknown) [facility] (no value) [facility] Result panel 23 (unknown) (no date) (unknown) [facility] (no value) ([facility] Result panel 24 (unknown) (no date) (unknown) [facility] (no value) [facility] Result panel 25 (unknown) (no date) (unknown) [facility] (no value) [facility] Result panel 26 (unknown) (no date) (unknown) [facility] (no value) [facility] Result panel 27 (unknown) (no date) (unknown) [facility] (no value) [facility] Result panel 28 (unknown) (no date) (unknown) [facility] (no value) [facility] Result panel 29 (unknown) (no date) (unknown) Walk-[facility] (no value) (units [facility] Result panel 30 (unknown) (no date) (unknown) Walk-[facility] (no value) (units [facility] Result panel 31 (unknown) (no date) (unknown) Walk-[facility] (no value) [facility]units [facility] Result panel 32 (unknown) (no date) (unknown) Walk-[facility] (no value) (units [facility] Result panel 33 (unknown) (no date) (unknown) Walk-[facility] (no value) (units [facility] Result panel 34 (unknown) (no date) (unknown) Walk-[facility] (no value) (units [facility] Result panel 35 (unknown) (no date) (unknown) Walk-[facility] (no value) [facility] Result panel 36 (unknown) (no date) (unknown) Walk-[facility] (no value) (units [facility] Result panel 37 (unknown) (no date) (unknown) Walk-[facility] (no value) ([facility] Result panel 38 (unknown) (no date) (unknown) Walk-[facility] (no value) ([facility] Result panel 39 (unknown) (no date) (unknown) Walk-[facility] (no value) (units [facility] Result panel 40 (unknown) (no date) (unknown) Walk-[facility] (no value) ([facility] Result panel 41 (unknown) (no date) (unknown) Walk-[facility] (no value) (units ([facility] Result panel 42 (unknown) (no date) (unknown) Walk-[facility] (no value) (units [facility] Result panel 43 (unknown) (no date) (unknown) Walk-[facility] (no value) (units [facility] Result panel 44 (unknown) (no date) (unknown) Walk-[facility] (no value) (units [facility] Result panel 45 (unknown) (no date) (unknown) Walk-[facility] (no value) (units [facility] Result panel 46 (unknown) (no date) (unknown) Walk-[facility] (no value) (units [facility] Result panel 47 (unknown) (no date) (unknown) Walk-[facility] (no value) (units [facility] Result panel 48 (unknown) (no date) (unknown) Walk-[facility] (no value) (units [facility] Result panel 49 (unknown) (no date) (unknown) Walk-[facility] (no value) (units [facility] Result panel 50 (unknown) (no date) (unknown) Walk-[facility] (no value) (units [facility] Result panel 51 (unknown) (no date) (unknown) Walk-[facility] (no value) (units [facility] Result panel 52 (unknown) (no date) (unknown) Walk-[facility] (no value) (units [facility]own[facility] Result panel 53 (unknown) (no date) (unknown) Walk-[facility] (no value) (units [facility]own[facility] Result panel 54 (unknown) (no date) (unknown) Walk-[facility] (no value) (units [facility]own[facility] Result panel 55 (unknown) (no date) (unknown) Walk-[facility] (no value) (units [facility]own[facility] Result panel 56 (unknown) (no date) (unknown) Walk-[facility] (no value) (units [facility] Result panel 57 (unknown) (no date) (unknown) Walk-In (no value) (units [facility] nown[facility] Result panel 58 (unknown) (no date) (unknown) Walk-In (no value) (units ([facility] nown[facility] Result panel 59 (unknown) (no date) (unknown) Walk-In (no value) (units [facility] nown[facility] Result panel 60 (unknown) (no date) (unknown) Walk-In (no value) (units [facility] nown[facility] Result panel 61 (unknown) (no date) (unknown) Walk-In (no value) (units ([facility] nown) [facility] unknown) [facility] Result panel 62 (unknown) (no date) (unknown) [facility] value[facility] Result panel 63 (unknown) (no date) (unknown) [facility] value[facility] Result panel 64 (unknown) (no date) (unknown) [facility] (no value) [facility] Result panel 65 (unknown) (no date) (unknown) [facility]no value) [facility] Result panel 66 (unknown) (no date) (unknown) [facility]no value) [facility] Result panel 67 (unknown) (no date) (unknown) [facility] (no value) [facility] Result panel 68 (unknown) (no date) (unknown) [facility] (no value) [facility] Result panel 69 (unknown) (no date) (unknown) [facility] (no value) [facility] Result panel 70 (unknown) (no date) (unknown) [facility] (no value) [facility] Result panel 71 (unknown) (no date) (unknown) [facility] (no value) [facility] Result panel 72 (unknown) (no date) (unknown) [facility] (no value) [facility] Result panel 73 (unknown) (no date) (unknown) [facility] (no value) [facility] Result panel 74 (unknown) (no date) (unknown) [facility] (no value) [facility] Result panel 75 (unknown) (no date) (unknown) [facility] (no value) [facility] Result panel 76 (unknown) (no date) (unknown) [facility] (no value) [facility] Result panel 77 (unknown) (no date) (unknown) [facility] (no value) [facility] Result panel 78 (unknown) (no date) (unknown) [facility] (no value) [facility] Result panel 79 (unknown) (no date) (unknown) [facility] (no value) [facility] Result panel 80 (unknown) (no date) (unknown) [facility] (no value) [facility] Result panel 81 (unknown) (no date) (unknown) [facility] (no value) [facility] Result panel 82 (unknown) (no date) (unknown) [facility] (no value) [facility] Result panel 83 (unknown) (no date) (unknown) [facility] (no value) [facility] Result panel 84 (unknown) (no date) (unknown) [facility] (no value) [facility] Result panel 85 (unknown) (no date) (unknown) [facility] (no value) [facility] Result panel 86 (unknown) (no date) (unknown) [facility] (no value) [facility] Result panel 87 (unknown) (no date) (unknown) [facility] (no value) [facility] Result panel 88 (unknown) (no date) (unknown) [facility] (no value) [facility] Result panel 89 (unknown) (no date) (unknown) [facility] (no value) [facility] Result panel 90 (unknown) (no date) (unknown) [facility] (no value) [facility] Result panel 91 (unknown) (no date) (unknown) [facility] (no value) [facility] Result panel 92 (unknown) (no date) (unknown) [facility] (no value) [facility] Result panel 93 (unknown) (no date) (unknown) [facility] (no value) [facility] Result panel 94 (unknown) (no date) (unknown) [facility] (no value) [facility] Result panel 95 (unknown) (no date) (unknown) [facility] (no value) [facility] Result panel 96 (unknown) (no date) (unknown) [facility] (no value) [facility] Result panel 97 (unknown) (no date) (unknown) [facility] (no value) [facility] Result panel 98 (unknown) (no date) (unknown) [facility] (no value) [facility] Result panel 99 (unknown) (no date) (unknown) [facility] (no value) [facility] Result panel 100 (unknown) (no date) (unknown) [facility] (no value) [facility] Result panel 101 (unknown) (no date) (unknown) [facility] (no value) [facility] Result panel 102 (unknown) (no date) (unknown) [facility] (no value) [facility] Result panel 103 (unknown) (no date) (unknown) [facility] (no value) [facility] Result panel 104 (unknown) (no date) (unknown) [facility] (no value) [facility] Result panel 105 (unknown) (no date) (unknown) [facility] (no value) [facility] Result panel 106 (unknown) (no date) (unknown) [facility] (no value) [facility] Result panel 107 (unknown) (no date) (unknown) [facility] (no value) [facility] Result panel 108 (unknown) (no date) (unknown) [facility] (no value) [facility] Result panel 109 (unknown) (no date) (unknown) [facility] (no value) [facility] Result panel 110 (unknown) (no date) (unknown) [facility] (no value) [facility]units [facility] Result panel 111 (unknown) (no date) (unknown) [facility] (no value) [facility] Result panel 112 (unknown) (no date) (unknown) [facility] (no value) [facility] Result panel 113 (unknown) (no date) (unknown) [facility] (no value) [facility] Result panel 114 (unknown) (no date) (unknown) [facility] (no value) [facility] Result panel 115 (unknown) (no date) (unknown) [facility] (no value) [facility] Result panel 116 (unknown) (no date) (unknown) [facility] (no value) [facility]units [facility] Result panel 117 (unknown) (no date) (unknown) [facility] (no value) [facility] Result panel 118 (unknown) (no date) (unknown) [facility] (no value) [facility] Result panel 119 (unknown) (no date) (unknown) [facility] (no value) [facility] Result panel 120 (unknown) (no date) (unknown) [facility] (no value) [facility] Result panel 121 (unknown) (no date) (unknown) [facility] (no value) [facility] Result panel 122 (unknown) (no date) (unknown) [facility] (no value) [facility] Result panel 123 (unknown) (no date) (unknown) [facility] (no value) [facility] Result panel 124 (unknown) (no date) (unknown) [facility] (no value) [facility] Result panel 125 (unknown) (no date) (unknown) [facility] (no value) [facility] Result panel 126 (unknown) (no date) (unknown) [facility] (no value) [facility] Result panel 127 (unknown) (no date) (unknown) [facility] (no value) [facility] Result panel 128 (unknown) (no date) (unknown) [facility] (no value) [facility] Result panel 129 (unknown) (no date) (unknown) [facility] (no value) [facility] Result panel 130 (unknown) (no date) (unknown) [facility] (no value) [facility] Result panel 131 (unknown) (no date) (unknown) [facility] (no value) [facility] Result panel 132 (unknown) (no date) (unknown) [facility] (no value) [facility] Result panel 133 (unknown) (no date) (unknown) [facility] (no value) [facility] Result panel 134 (unknown) (no date) (unknown) [facility] (no value) [facility] Result panel 135 (unknown) (no date) (unknown) [facility] (no value) [facility] Result panel 136 (unknown) (no date) (unknown) [facility] (no value) [facility] Result panel 137 (unknown) (no date) (unknown) [facility] (no value) [facility] Result panel 138 (unknown) (no date) (unknown) [facility] (no value) [facility] Result panel 139 (unknown) (no date) (unknown) [facility] (no value) [facility] Result panel 140 (unknown) (no date) (unknown) [facility] (no value) [facility] Result panel 141 (unknown) (no date) (unknown) [facility] (no value) [facility] Result panel 142 (unknown) (no date) (unknown) [facility] (no value) [facility] Result panel 143 (unknown) (no date) (unknown) [facility] (no value) [facility] Result panel 144 (unknown) (no date) (unknown) [facility] (no value) [facility] Result panel 145 (unknown) (no date) (unknown) [facility] (no value) [facility] Result panel 146 (unknown) (no date) (unknown) [facility] (no value) [facility] Result panel 147 (unknown) (no date) (unknown) [facility] (no value) [facility] Result panel 148 (unknown) (no date) (unknown) [facility] (no value) [facility] Result panel 149 (unknown) (no date) (unknown) [facility] (no value) [facility] Result panel 150 (unknown) (no date) (unknown) [facility] (no value) [facility] Result panel 151 (unknown) (no date) (unknown) [facility] (no value) [facility] Result panel 152 (unknown) (no date) (unknown) [facility] (no value) [facility] Result panel 153 (unknown) (no date) (unknown) [facility] (no value) [facility] Result panel 154 (unknown) (no date) (unknown) [facility] (no value) [facility] Result panel 155 (unknown) (no date) (unknown) [facility] (no value) [facility] Result panel 156 (unknown) (no date) (unknown) [facility] (no value) [facility] Result panel 157 (unknown) (no date) (unknown) [facility] (no value) [facility] Result panel 158 (unknown) (no date) (unknown) [facility] (no value) [facility] Result panel 159 (unknown) (no date) (unknown) [facility] (no value) [facility] Result panel 160 (unknown) (no date) (unknown) [facility] (no value) [facility] Result panel 161 (unknown) (no date) (unknown) [facility] (no value) [facility] Result panel 162 (unknown) (no date) (unknown) [facility] (no value) [facility] Result panel 163 (unknown) (no date) (unknown) [facility] (no value) [facility] Result panel 164 (unknown) (no date) (unknown) [facility] (no value) [facility] Result panel 165 (unknown) (no date) (unknown) [facility] (no value) [facility] Result panel 166 (unknown) (no date) (unknown) [facility] (no value) [facility] Result panel 167 (unknown) (no date) (unknown) [facility] (no value) [facility] Result panel 168 (unknown) (no date) (unknown) [facility] (no value) [facility] Result panel 169 (unknown) (no date) (unknown) [facility] (no value) [facility] Result panel 170 (unknown) (no date) (unknown) [facility] (no value) [facility] Result panel 171 (unknown) (no date) (unknown) [facility] (no value) [facility] Result panel 172 (unknown) (no date) (unknown) [facility] (no value) [facility] Result panel 173 (unknown) (no date) (unknown) [facility] (no value) [facility] Result panel 174 (unknown) (no date) (unknown) [facility] (no value) [facility] Result panel 175 (unknown) (no date) (unknown) [facility] (no value) [facility] Result panel 176 (unknown) (no date) (unknown) [facility] (no value) [facility] Result panel 177 (unknown) (no date) (unknown) [facility] (no value) [facility] Social History date description facility 2022-08-29 00:00 Current every day smoker [facility] [place] Vital Signs date measurement value units 2022-08-29 00:00 BMI 21.34 kg/m2 2022-08-29 00:00 BP_diastolic 82 mmHg 2022-08-29 00:00 BP_systolic 129 mmHg 2022-08-29 00:00 heart_rate 66 /min 2022-08-29 00:00 height_metric 175.26 cm 2022-08-29 00:00 height_standard 69 in 2022-08-29 00:00 respiration_rate 16 /min 2022-08-29 00:00 temperature_metric 35.72 C 2022-08-29 00:00 temperature_standard 96.3 F 2022-08-29 00:00 weight_metric 65.32 kg 2022-08-29 00:00 weight_standard 144 lb
[2022-10-11 20:01] LABS: BILIRUBIN,URINE NEGATIVE (NEGATIVE); GLUCOSE, URINE (UA) NEGATIVE (NEGATIVE); KETONES,URINE (UA) NEGATIVE (NEGATIVE); LEUKOCYTE ESTERASE, URINE NEGATIVE (NEGATIVE); NITRITE,URINE NEGATIVE (NEGATIVE); OCCULT BLOOD,URINE NEGATIVE (NEGATIVE); PROTEIN,URINE NEGATIVE (NEGATIVE); UROBILINOGEN,URINE 0.2 (NORMAL) E.U./dL (NORMAL)
[2022-10-11 20:03] LABS: CLARITY,URINE CLEAR (CLEAR)
[2022-10-11 20:14] LABS: BASOPHILS # (AUTO) 0.1 10^3/uL (0.0-0.1); BASOPHILS % (AUTO) 1.3 %; EOSINOPHILS # (AUTO) 0.6 10^3/uL (0.0-0.7); EOSINOPHILS % (AUTO) 8.1 %; HCT - HEMATOCRIT 39.6 % (42.0-52.0); HGB - HEMOGLOBIN 13.3 g/dL (14.0-18.0); LYMPHOCYTES % (AUTO) 28.6 %; MEAN CORPUSCULAR HEMOGLOBIN 31.1 pg (27.0-31.0); MEAN CORPUSCULAR HGB CONC 33.6 g/dL (32.0-36.0); MEAN CORPUSCULAR VOLUME 92.5 fL (80.0-94.0); MEAN PLATELET VOLUME 9.4 fL (7.4-11.4); MONOCYTES # (AUTO) 0.6 10^3/uL (0.0-1.0); MONOCYTES % (AUTO) 8.2 %; NEUTROPHILS # (AUTO) 3.8 10^3/uL (1.5-6.6); NEUTROPHILS % (AUTO) 53.5 %; PLT - PLATELET COUNT 198 10^3/uL (130-450); RED BLOOD COUNT 4.28 10^6/uL (4.70-6.10); RED CELL DISTRIBUTION WIDTH 13.5 % (12.0-15.0)
[2022-10-11 20:27] LABS: ALBUMIN/GLOBULIN RATIO 1.1 (1.0-2.2); ALKALINE PHOSPHATASE 89 IU/L (42-121); ALT ALANINE AMINOTRANSFERASE < 10 IU/L (10-60); AST ASPARTATE AMINOTRANSFERASE 18 IU/L (10-42); BILIRUBIN,TOTAL 0.6 mg/dL (0.2-1.0); BUN - BLOOD UREA NITROGEN 17 mg/dL (6-20); CALCIUM 9.1 mg/dL (8.5-10.3); CARBON DIOXIDE - CO2 30 mmol/L (21-32); CHLORIDE 84 mmol/L (101-111); GFR - MDRD 73 (>89); GLUCOSE 77 mg/dL (70-100); LIPASE 41 U/L (22-51); POTASSIUM 4.3 mmol/L (3.5-5.0); SODIUM 123 mmol/L (135-145); TOTAL PROTEIN 7.7 g/dL (6.7-8.2)
[2022-10-11] MEDS ORDERED: SODIUM CHLORIDE 0.9% 1,000 ML IV STA ×2 (20:56→22:44)
--- NOTE | 2022-10-11 21:03 | ED Physician Documentation ---
History of Present Illness - Stated complaint Stated Complaint: TIRED PX/SODIUM LEVEL LOW - Chief complaint Chief Complaint: General - History obtained from History obtained from: Patient, Family - History of Present Illness Timing: How many weeks ago (2) - Additonal information Additional information: 72-year-old Corona Saunders has a history of atrial fibrillation and congestive heart failure and he has had an issue with dehydration previously and hyponatremia. Today he presented to the walk-in clinic with a chief complaint of weakness and fatigue and on lung exam he had diminished breath sounds and swollen feet he was placed on Lasix and called to come to the emergency department when his blood work showed a sodium of 122. The patient indicates that his weakness is more profound the last 2 days but that in general he has been having an issue for 2 weeks. He also was complaining of a cough that has been present since he had influenza and a coronavirus in June. The cough is slowly improving. Review of Systems Constitutional: reports: Fatigue. denies: Fever Eyes: denies: Decreased vision Ears: denies: Ear pain Nose: reports: Rhinorrhea / runny nose, Congestion. denies: Sinus pressure / pain Throat: denies: Sore throat Cardiac: reports: Pedal edema (No different than usual left worse than right prior evaluation present.). denies: Chest pain / pressure, Palpitations Respiratory: reports: Dyspnea, Cough GI: denies: Abdominal Pain, Nausea, Vomiting, Constipation, Diarrhea : denies: Dysuria, Frequency Skin: denies: Rash Musculoskeletal: denies: Neck pain, Back pain, Extremity pain Neurologic: reports: Generalized weakness, Headache. denies: Focal weakness, Numbness, Head injury, LOC PD PAST MEDICAL HISTORY - Past Medical History Cardiovascular: Congestive heart failure, Hypertension, Atrial fibrillation Respiratory: None Neuro: None Endocrine/Autoimmune: None GI: None : None HEENT: None Psych: None Musculoskeletal: None Derm: None - Past Surgical History Past Surgical History: No Ortho: Arthroscopic surgery, Other - Present Medications Home Medications: Ambulatory Orders Medication Instructions Recorded Confirmed Amox/Clav 875/125 [Augmentin] 1 each PO Q12H #10 tablet 06/12/22 Apixaban [Eliquis] 5 mg ORAL BID 06/12/22 06/12/22 Benzonatate [Tessalon] 100 mg PO TID PRN #20 cap 12/07/22 Famotidine [Pepcid] 20 mg PO DAILY #15 tablet 06/12/22 Levothyroxine [Synthroid] 12.5 mcg PO QDAC 06/12/22 06/12/22 Metoprolol Succinate 100 mg PO BID 06/12/22 06/12/22 Ondansetron Odt [Zofran] 4 mg TL Q6H PRN #15 tablet 06/12/22 - Allergies Allergies/Adverse Reactions: Allergies Allergy/AdvReac Type Severity Reaction Status Date / Time Sulfa (Sulfonamide Allergy Unknown Verified 10/11/22 19:44 Antibiotics) - Social History Does the pt smoke?: No Smoking Status: Never smoker - Immunizations Immunizations are current?: Yes PD ED PE NORMAL - Vitals Vital signs reviewed: Yes - General General: Alert and oriented X 3, No acute distress, Well developed/nourished, Other (Delay in execution of motor commands is present speech latency is less than 1 second) - HEENT HEENT: Atraumatic, PERRL, EOMI - Neck Neck: Supple, no meningeal sign, No bony TTP - Cardiac Cardiac: No murmur, Other (bradycardic) - Respiratory Respiratory: No respiratory distress, Other (diminished breath sounds bilat) - Abdomen Abdomen: Soft, Non tender, Other (distended ) - Back Back: No CVA TTP, No spinal TTP - Derm Derm: Normal color, Warm and dry, No rash - Extremities Extremities: No deformity, Other (bilat LE swelling no significant pitting left > R previously investigated X 2.) - Neuro Neuro: Alert and oriented X 3, inspector hairspring truing 2-12 intact, No motor deficit, No sensory deficit, Normal speech Eye Opening: Spontaneous Motor: Obeys Commands Verbal: Oriented GCS Score: 15 - Psych Psych: Normal mood, Normal affect Results - Vitals Vitals: Vital Signs - 24 hr 10/11/22 10/11/22 10/11/22 19:30 21:25 23:00 Temperature 36.5 C 36.6 C Heart Rate 59 L 48 L 53 L Respiratory 18 13 14 Rate Blood Pressure 178/82 H 141/79 H 146/100 H O2 Saturation 97 100 98 10/12/22 01:15 Temperature Heart Rate 52 L Respiratory 14 Rate Blood Pressure 176/82 H O2 Saturation 100 Oxygen O2 Source Room air - Labs Labs: Laboratory Tests 04/01/2610/11/22 10/11/22 19:38 19:38 20:09 WBC 7.0 RBC 4.28 L Hgb 13.3 L Hct 39.6 L MCV 92.5 MCH 31.1 H MCHC 33.6 RDW 13.5 Plt Count 198 MPV 9.4 Neut # (Auto) 3.8 Lymph # (Auto) 2.0 [place] # (Auto) 0.6 Eos # (Auto) 0.6 Baso # (Auto) 0.1 Absolute Nucleated RBC 0.00 Nucleated RBC % 0.0 Sodium Potassium Chloride Carbon Dioxide Anion Gap BUN Creatinine Estimated GFR (MDRD) Glucose Calcium Total Bilirubin AST ALT Alkaline Phosphatase B-Natriuretic Peptide Total Protein Albumin Globulin Albumin/Globulin Ratio Lipase TSH Urine Color DARK YELLOW Urine Clarity CLEAR Urine pH 6.0 Ur Specific [place] 1.020 Urine Protein NEGATIVE Urine Glucose (UA) NEGATIVE Urine Ketones NEGATIVE Urine Occult Blood NEGATIVE Urine Nitrite NEGATIVE Urine Bilirubin NEGATIVE Urine Urobilinogen 0.2 (NORMAL) Ur Leukocyte Esterase NEGATIVE Ur Microscopic Review NOT INDICATED Urine Culture Comments NOT INDICATED Urine Sodium 117.0 10/11/22 10/11/22 10/11/22 20:09 20:09 22:52 WBC RBC Hgb Hct MCV MCH MCHC RDW Plt Count MPV Neut # (Auto) Lymph # (Auto) [place] # (Auto) Eos # (Auto) Baso # (Auto) Absolute Nucleated RBC Nucleated RBC % Sodium 123 L Potassium 4.3 Chloride 84 L Carbon Dioxide 30 Anion Gap 9.0 BUN 17 Creatinine 1.0 Estimated GFR (MDRD) 73 L Glucose 77 Calcium 9.1 Total Bilirubin 0.6 AST 18 ALT < 10 L Alkaline Phosphatase 89 B-Natriuretic Peptide 367 H Total Protein 7.7 Albumin 4.0 Globulin 3.7 Albumin/Globulin Ratio 1.1 Lipase 41 TSH 105.38 H Urine Color Urine Clarity Urine pH Ur Specific [place] Urine Protein Urine Glucose (UA) Urine Ketones Urine Occult Blood Urine Nitrite Urine Bilirubin Urine Urobilinogen Ur Leukocyte Esterase Ur Microscopic Review Urine Culture Comments Urine Sodium 10/11/22 22:52 WBC RBC Hgb Hct MCV MCH MCHC RDW Plt Count MPV Neut # (Auto) Lymph # (Auto) [place] # (Auto) Eos # (Auto) Baso # (Auto) Absolute Nucleated RBC Nucleated RBC % Sodium 123 L Potassium 4.1 Chloride 86 L Carbon Dioxide 27 Anion Gap 10.0 BUN 17 Creatinine 0.9 Estimated GFR (MDRD) 82 L Glucose 92 Calcium 8.8 Total Bilirubin AST ALT Alkaline Phosphatase B-Natriuretic Peptide Total Protein Albumin Globulin Albumin/Globulin Ratio Lipase TSH Urine Color Urine Clarity Urine pH Ur Specific [place] Urine Protein Urine Glucose (UA) Urine Ketones Urine Occult Blood Urine Nitrite Urine Bilirubin Urine Urobilinogen Ur Leukocyte Esterase Ur Microscopic Review Urine Culture Comments Urine Sodium - Rads (name of study) Chest Relevant Findings:: Prelim report reviewed (Impression: Portable chest within normal limits for age.), EMP independent interpretation of test Procedures - IVC sono (time) 2054 Bedside IVC sono: IVC measures (cm) (1.12), IVC collapsed c insp (cm) (complete), Dehydration (est 1-2 liter deficit) PD Medical Decision Making - ED course Complexity details: reviewed old records, reviewed results, re-evaluated patient, considered differential, d/w patient, d/w family Reviewed Lab Results: Today we reviewed a complete blood count with normal white blood cell count nearly normal hemoglobin and hematocrit and normal platelets. Chemistries were remarkable for a serum sodium of 123 this was compared to prior sodiums the patient has had since June of last year all numbers are low with the lowest being this morning at 121. He has had a range from 1 26-1 34 prior to that. his BNP was mildly elevated at 367 and we have no comparisons urinalysis showed a specific gravity 1.020.My interpretation of this is a chronic hyponatremia with a grazyna today. The patient is symptomatic.I interrogated the patient's inferior vena cava with POCUS and found that he was significantly dehydrated on the order of 2 L. My interpretation of this is hyponatremia related to volume depletion. ED course: 72-year-old male presenting to the emergency department at the request of the urgent care physician who earlier in the day had drawn a serum sodium panel showing a serum sodium of 121. Patient presents with symptoms of weakness and even difficulty walking. He initially has some mild speech latency and some d elay in execution of motor commands. He was hydrated here in the emergency department with a liter of saline with improvement in his speech latency and delay in execution of motor commands. The patient has had this hyponatremia now for several months it has now become symptomatic and more profound and a specific explanation for his hyponatremia has not been elucidated. He does have a history of thyroid disease. I found this a specific opportunity to evaluate the patient further and hospitalization is indicated. I discussed the case with our hospitalist on-call Dr. Anne and he recommended evaluation of the TSH and increased replacement if this is an issue and at 123 after receiving fluids the patient is now improved dramatically and his symptoms and further treatment as an outpatient is indicated. The patient himself would like to go home. I have evaluated the patient's TSH and found to be markedly elevated. There is a record for the patient. We will increase his dose of levothyroxine to 50 mcg and have the patient follow-up with Tess Funk for evaluation of his TSH and sodium. Departure - Departure Disposition: Home, Self Care Clinical Impression: Hyponatremia, Dehydration Condition: Stable Instructions: ED Dehydration, ED Hyponatremia, ED Hypothyroidism Follow-Up: Ysabel Bates ARNP [Credentialed Staff Provider] - Comments: Corona today we did find that your serum sodium was low and your volume was extremely low. We were able to provide some intravenous fluid with improvement in your volume status and we were able to determine that the likely cause of this chronic low sodium is not enough thyroid. Today your TSH was markedly elevating and our recommendation is to increase your dose of levothyroxine to 50 mcg daily. The recommendation is to follow-up with Tess Funk within the week for repeat sodium check and if you are having symptoms again the repeat visit to the emergency department is indicated. The level of TSH indicates a very low thyroid level and this is sometimes accompanied by something called myxedema. I suspect the swelling in your legs is related to this and not to heart failure. Myxedema usually progresses slowly and can progress to coma. If you are slowing down again or develop the degree of disability that you had today come back to see us sooner than later. Discharge Date/Time: 10/12/22 01:15
--- NOTE | 2022-10-11 21:17 | XRAY Report ---
PROCEDURE: Chest 1 View X-Ray INDICATIONS: chest pain TECHNIQUE: One view of the chest was acquired. COMPARISON: 06/12/2022 FINDINGS: Surgical changes and devices: None. Lungs and pleura: No pleural effusions or pneumothorax. Lungs are clear. Mediastinum: The aorta is prominent and tortuous. The cardiac contours are within normal limits. Bones and chest wall: No suspicious bony lesions. Age-appropriate degenerative changes are seen. O verlying soft tissues appear unremarkable. IMPRESSION: Portable chest within normal limits for age. Reviewed by: Olvin Reece MD on 10/11/2022 8:16 PM DANIELE Approved by: Olvin Reece MD on 10/11/2022 8:16 PM DANIELE Station ID: [id number]
[2022-10-11 23:06] LABS: CALCIUM 8.8 mg/dL (8.5-10.3); CREATININE 0.9 mg/dL (0.6-1.2); POTASSIUM 4.1 mmol/L (3.5-5.0)
[2022-10-12 01:16] VITALS: BP 176/82
== END 2022-10-12 01:15 | disposition home or self-care (01) ==
LOC: ED 19:26
DX: E86.9 Volume depletion, unspecified (principal); E87.1 Hypo-osmolality and hyponatremia; R94.6 Abnormal results of thyroid function studies; I50.9 Heart failure, unspecified
CPT/HCPCS: 36415; 80048; 80053; 81001; 81003; 83690; 83880; 84300; 84443; 85025; 85027; 87086; 96360; 99284

== ENCOUNTER 2022-11-03 10:57 | Outpatient (CLI) | payer MEDICARE ==
[2022-11-03 12:18] LABS: THYROID STIMULATING HORMONE 115.59 uIU/mL (0.34-5.60)
[2022-11-03 12:51] LABS: FREE T4 (FREE THYROXINE) 0.58 ng/dL (0.58-1.64)
== END 2022-11-03 10:58 | disposition home or self-care (01) ==
LOC: LAB 10:57
PROVIDERS: ATTEND Internal Medicine Endocrinology, Diabetes & Metabolism
DX: E03.8 Other specified hypothyroidism (principal); E06.3 Autoimmune thyroiditis
CPT/HCPCS: 36415; 84439; 84443

== ENCOUNTER 2023-02-01 11:57 | Outpatient (CLI) | payer MEDICARE | END 2023-02-01 11:58 | disposition home or self-care (01) | LOC: LAB 11:57 | PROVIDERS: ATTEND Internal Medicine Endocrinology, Diabetes & Metabolism | DX: E03.8 Other specified hypothyroidism (principal); E06.3 Autoimmune thyroiditis; R94.6 Abnormal results of thyroid function studies | CPT/HCPCS: 36415; 84439; 84443 ==

== ENCOUNTER 2023-05-17 10:16 | Outpatient (CLI) | payer MEDICARE ==
[2023-05-17 11:22] LABS: THYROID STIMULATING HORMONE 112.11 uIU/mL (0.34-5.60)
== END 2023-05-17 10:17 | disposition home or self-care (01) ==
LOC: LAB 10:16
PROVIDERS: ATTEND Internal Medicine Endocrinology, Diabetes & Metabolism
DX: E03.8 Other specified hypothyroidism (principal); E06.3 Autoimmune thyroiditis
CPT/HCPCS: 36415; 84439; 84443

== ENCOUNTER 2023-10-04 08:51 | Outpatient (CLI) | payer MEDICARE ==
[2023-10-04 09:59] LABS: THYROID STIMULATING HORMONE 102.57 uIU/mL (0.34-5.60)
== END 2023-10-04 08:52 | disposition home or self-care (01) ==
LOC: LAB 08:51
PROVIDERS: ATTEND Internal Medicine Endocrinology, Diabetes & Metabolism
DX: E03.8 Other specified hypothyroidism (principal); E06.3 Autoimmune thyroiditis
CPT/HCPCS: 36415; 84439; 84443

== ENCOUNTER 2023-12-18 15:42 | Emergency (ER) | payer OTHER, MEDICARE ==
[2023-12-18 16:39] LABS: BASOPHILS # (AUTO) 0.1 10^3/uL (0.0-0.1); BASOPHILS % (AUTO) 1.1 %; EOSINOPHILS # (AUTO) 0.3 10^3/uL (0.0-0.7); EOSINOPHILS % (AUTO) 4.5 %; HCT - HEMATOCRIT 43.8 % (42.0-52.0); HGB - HEMOGLOBIN 14.4 g/dL (14.0-18.0); LYMPHOCYTES # (AUTO) 1.7 10^3/uL (1.5-3.5); LYMPHOCYTES % (AUTO) 24.5 %; MEAN CORPUSCULAR HEMOGLOBIN 31.8 pg (27.0-31.0); MEAN CORPUSCULAR HGB CONC 32.9 g/dL (32.0-36.0); MEAN CORPUSCULAR VOLUME 96.7 fL (80.0-94.0); MEAN PLATELET VOLUME 9.7 fL (7.4-11.4); MONOCYTES # (AUTO) 0.6 10^3/uL (0.0-1.0); MONOCYTES % (AUTO) 8.5 %; NEUTROPHILS # (AUTO) 4.3 10^3/uL (1.5-6.6); NEUTROPHILS % (AUTO) 60.7 %; PLT - PLATELET COUNT 255 10^3/uL (130-450); RED BLOOD COUNT 4.53 10^6/uL (4.70-6.10); RED CELL DISTRIBUTION WIDTH 13.5 % (12.0-15.0); WHITE BLOOD COUNT 7.1 x10^3/uL (4.8-10.8)
[2023-12-18 16:45] LABS: INR 1.8 (0.8-1.2); PT - PROTHROMBIN TIME 19.3 secs (9.9-12.6)
[2023-12-18 16:56] LABS: ALBUMIN 4.5 g/dL (3.2-5.5); ALBUMIN/GLOBULIN RATIO 1.3 (1.0-2.2); BILIRUBIN,TOTAL 0.8 mg/dL (0.2-1.0); CREATININE 1.1 mg/dL (0.6-1.3); POTASSIUM 4.2 mmol/L (3.5-4.5)
[2023-12-18 17:02] LABS: TROPONIN I HIGH SENSITIVITY 5.3 ng/L (2.3-19.7)
--- NOTE | 2023-12-18 17:05 | XRAY Report ---
PROCEDURE: Chest 1V INDICATIONS: Chest Pain TECHNIQUE: One view of the chest was acquired. COMPARISON: Chest x-ray, 10/11/2022, 06/12/2022. FINDINGS: Surgical changes and devices: None. Lungs and pleura: Lungs are hyperinflated consistent with COPD. No pleural effusions or pneumothorax. Mediastinum: Mediastinal contours appear normal. Heart size is normal. Bones and chest wall: No suspicious bony lesions. Overlying soft tissues appear unremarkable. IMPRESSION: No acute cardiopulmonary process. Reviewed by: Filipe Barnhart MD on 12/18/2023 4:04 PM DANIELE Approved by: Filipe Barnhart MD on 12/18/2023 4:04 PM AKDT Station ID: [id number]
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
[2023-12-18 19:07] VITALS: BP 169/82; O2SAT 99
== END 2023-12-18 19:02 | disposition home or self-care (01) ==
LOC: ED 15:42
DX: R55 Syncope and collapse (principal); I48.20 Chronic atrial fibrillation, unspecified
CPT/HCPCS: 36415; 80053; 83690; 84484; 85025; 85610; 93005; 99284

== ENCOUNTER 2024-01-11 10:23 | Outpatient (CLI) | payer MEDICARE ==
[2024-01-11 11:36] LABS: THYROID STIMULATING HORMONE 72.31 uIU/mL (0.34-5.60)
== END 2024-01-11 10:24 | disposition home or self-care (01) ==
LOC: LAB 10:23
PROVIDERS: ATTEND Student in an Organized Health Care Education/Training Program
DX: E03.9 Hypothyroidism, unspecified (principal)
CPT/HCPCS: 36415; 84439; 84443

== ENCOUNTER 2024-04-03 12:33 | Outpatient (CLI) | payer MEDICARE ==
[2024-04-03 13:15] LABS: THYROID STIMULATING HORMONE 51.84 uIU/mL (0.34-5.60)
== END 2024-04-03 12:34 | disposition home or self-care (01) ==
LOC: LAB 12:33
PROVIDERS: ATTEND Internal Medicine Endocrinology, Diabetes & Metabolism
DX: R94.6 Abnormal results of thyroid function studies (principal)
CPT/HCPCS: 36415; 84439; 84443